=== PATIENT | male | born 1990 | race Caucasian/White ===

== ENCOUNTER 2022-12-25 07:55 | Emergency (ER) | payer MEDICAID ==
[2022-12-25] MEDS ORDERED: Ketorolac 30 MG/ML SDV IM ONE (08:17)
[2022-12-25 08:36] VITALS: BP 156/94; PULSE 80
== END 2022-12-25 08:35 | disposition home or self-care (01) ==
LOC: KA.ED 07:55
DX: K03.81 Cracked tooth (principal); K04.7 Periapical abscess without sinus; J45.909 Unspecified asthma, uncomplicated
CPT/HCPCS: 96372; 99282; 99283; J1885

== ENCOUNTER 2025-03-16 07:37 | Emergency (ER) | payer MEDICAID ==
[2025-03-16 08:00] VITALS: BP 151/88; PULSE 58
[2025-03-16 08:04] LABS: BASOPHILS ABSOLUTE AUTO 0.02 10^3/uL (0.00-0.10); BASOPHILS PERCENT AUTO 0.5 % (0.0-1.0); EOSINOPHILS ABSOLUTE AUTO 0.12 10^3/uL (0.10-0.30); EOSINOPHILS PERCENT AUTO 2.8 % (1.0-3.0); IMMATURE GRAN ABSOLUTE AUTO 0.00 10^3/uL (0.00-0.04); IMMATURE GRAN PERCENT AUTO 0.0 % (0.0-0.4); LYMPHOCYTES ABSOLUTE AUTO 1.53 10^3/uL (1.00-4.00); LYMPHOCYTES PERCENT AUTO 35.2 % (20.0-40.0); MEAN PLATELET VOLUME 9.7 fL (7.4-10.4); MONOCYTES ABSOLUTE AUTO 0.34 10^3/uL (0.10-0.80); MONOCYTES PERCENT AUTO 7.8 % (2.0-8.0); NEUTROPHILS ABSOLUTE AUTO 2.34 10^3/uL (2.50-7.00); NEUTROPHILS PERCENT AUTO 53.7 % (50.0-70.0); PLATELET COUNT,PLT 192 10^3/uL (150-400); RED BLOOD CELL COUNT 4.73 10^6/uL (4.50-6.00); RED CELL DISTRIBUTION WIDTH 11.9 % (11.5-14.5); WHITE BLOOD CELL COUNT,WBC 4.35 10^3/uL (5.00-10.00)
[2025-03-16 08:20] LABS: ALANINE AMINOTRANSFERASE,ALT 26.0 U/L (14-63); ASPARTATE AMNIOTRANSFERASE,AST 19.0 U/L (15-37); BILIRUBIN TOTAL 0.4 mg/dL (0.2-1.0); BLOOD UREA NITROGEN,BUN 19.0 mg/dL (7-18); CARBON DIOXIDE,CO2 30.0 mmol/L (21.0-32.0); CHLORIDE,CL 105.0 mmol/L (98-107); CREATININE 0.86 mg/dL (0.51-1.17); EST CRCL DRUG DOSING (CG) 112.59 mL/min; GLUCOSE RANDOM 98.0 mg/dL (70-140); POTASSIUM,K 4.7 mmol/L (3.5-5.1); PROTEIN TOTAL,TP 6.9 g/dL (6.4-8.2); SODIUM,NA 143.0 mmol/L (136-145)
[2025-03-16 08:21] LABS: ESTIMATED GFR 117.0 mL/min (>=60)
== END 2025-03-16 08:42 | disposition home or self-care (01) ==
LOC: KA.ED 07:37
DX: K92.1 Melena (principal)
CPT/HCPCS: 36415; 80053; 82270; 85025; 99283